=== PATIENT | male | born 1980 | race Caucasian/White ===

== ENCOUNTER 2023-03-22 08:46 | Emergency (ER) | payer OTHER, SELFPAY ==
[2023-03-22 08:52] VITALS: BP 169/102; RESP 20; TEMP 36.8; O2SAT 98; BMI 38.8
--- NOTE | 2023-03-22 09:11 | XR_ITS ---
WS: [id number] KUB, AP view, 03/22/2023 Clinical Data: constipation Comparison: None. Findings: No abnormal intraabdominal masses or calcifications are seen. There is no dilatated small bowel or ev idence of obstruction. There is fecal material in the ascending colon, transverse colon and descending colon. Impression: Moderate amount of fecal material in the colon.
[2023-03-22 10:01] VITALS: BP 174/119; PULSE 72; O2SAT 95
[2023-03-22 10:15] LABS: Basophils # 0.1 10^3/uL (0.0-0.1); Basophils % 0.6 %; Eosinophils # 0.2 10^3/uL (0.0-0.8); Eosinophils % 1.3 %; Hematocrit 46.8 % (37-53); Lymphocytes # 1.5 10^3/uL (0.8-4.8); Lymphocytes % 12.4 %; Mean Corpuscular HGB Conc 32.5 g/dL (30-55); Mean Corpuscular Hemoglobin 28.5 pg (27-33); Mean Corpuscular Volume 87.8 fl (82-101); Mean Platelet Volume 10.4 fL (7.4-10.4); Monocytes # 0.9 10^3/uL (0.2-0.9); Monocytes % 7.5 %; Neutrophils # 9.68 10^3/uL (1.8-7.7); Nucleated Red Blood Cells % 0 %; Platelet Count 229 10^3/cmm (157-399); Red Blood Count 5.33 10^6/uL (3.85-5.65); White Blood Count 12.41 10^3/uL (3.29-11.43)
[2023-03-22 10:34] LABS: Alanine Aminotransferase 20 U/L (0-41); Albumin Level 4.2 g/dL (3.5-5.2); Alkaline Phosphatase 85 U/L (40-130); Anion Gap 12.4 (5-19); Aspartate Amino Transferase 20 U/L (0-40); Blood Urea Nitrogen 14 mg/dL (6-20); Calcium 9.8 mg/dL (8.5-10.5); Carbon Dioxide 27 mmol/L (22-29); Chloride 104 mmol/L (98-107); Globulin 2.7 g/dL (1.3-4.6); Glomerular Filtration Rate 50.6 mL/min (90-130); Glucose 104 mg/dL (65-115); Osmolality Calculated 289 mOsm/kg (285-295); Potassium 4.4 mmol/L (3.5-5.1); Sodium 139 mmol/L (136-145); Total Bilirubin 1.1 mg/dL (0.15-1.2); Total Protein 6.9 g/dL (6.6-8.7)
[2023-03-22 11:15] LABS: Add Urine Microscopic? NO; Charge for UA Resulting for Rev
--- NOTE | 2023-03-22 11:16 | ED_ITS ---
HPI - Abdominal Pain General: Chief Complaint: Abdominal Pain Stated Complaint: right back pain, N, constipation Time Seen by Provider: 03/22/23 09:01 Source: patient Mode of arrival: ambulatory History of Present Illness: 43-year-old male comes in complaining of lower abdominal pain suprapubic extending to the right side. Began 1 week ago's been waxing and waning since worse after he eats. Last night it had worsened significantly. He has been nauseous and a couple episodes of vomiting no hematemesis or coffee-ground emes is. No diarrhea or acholic stools. He had constipation was unable to have a bowel movement took some laxatives and the pain got better and now he is unable to go again is having more symptoms. He has not had any dysuria urgency or hematuria he has had no hematochezia melena or hematemesis. MD elicited complaint: abdominal pain Pertinent past history: constipation Onset (ago): week(s) (1) Location: Other (Right mid lower abdomen) Quality: cramping Exacerbating factors: nothing Relieving factors: nothing Associated Symptoms: Reports constipation, GI cramping and vomiting; Denies anorexia, belching, bloating, change in bowel habits, change in stool character, chills, coffee ground emesis, diarrhea, dyspepsia, dysuria, excessive flatus, fever(s), heartburn, hematochezia, hematuria, hematemesis, fecal incontinence, loose stools, melena, nausea, poor appetite and syncope Review of Systems Const: Denies: fever(s) or chills Card: Denies: chest pain or syncope Resp: Denies: dyspnea GI: Reports: abdominal pain, vomiting, constipation and GI cramping; Denies: nausea, hematemesis, coffee ground emesis, heartburn, diarrhea, bloating, belching, excessive flatus, fecal incontinence, change in bowel rodriguez bits, change in stool character, hematochezia or melena : Denies: dysuria, urinary frequency, urinary urgency or hematuria Musc: Denies: neck pain or back pain Skin/Breast: Denies: rash Physical Exam Const: GENERAL APPEARANCE: cooperative and comfortable ORIENTATION/CONSCIOUSNESS: Yes awake, Yes oriented to person, Yes oriented to place and Yes oriented to time HENMT: COMMON NORMALS: normocephalic, atraumatic and hearing grossly normal bilaterally HEAD & SCALP: normocephalic and atraumatic Resp: COMMON NORMALS: normal respiratory effort, No retractions, No use of accessory muscles and clear to auscultation bilaterally AUSCULTATION: clear to auscultation bilaterally Cardio: COMMON NORMALS: regular rate, regular rhythm and No murmurs present (Cardio) RATE: regular rate RHYTHM: regular rhythm GI: COMMON NORMALS: Soft to palpation and No hepatosplenomegaly present AUSCULTATION: Yes normoactive bowel sounds PALPATION: Yes Soft to palpation, No Tenderness to palpation present (GI), No Guarding due to palpation present (GI) and Yes No hepatosplenomegaly present : COMMON NORMALS: Yes no CVA tenderness BLADDER/KIDNEY EXAM: Yes no CVA tenderness Back/Pelvis: COMMON NORMALS: no CVA tenderness Extremity: COMMON NORMALS: normal to inspection, capillary refill normal, no clubbing, cyanosis or edema, no calf tenderness and no pedal edema Neuro: SENSORIUM/ORIENTATION: Yes oriented to person, Yes oriented to place and Yes oriented to time Skin: COMMON NORMALS: no rashes or lesions noted GENERAL SKIN EXAM: no rashes or lesions noted Course Vital Signs: Vital signs: Vital Signs Temperature 98.2 F 03/22/23 08:52 Pulse Rate 72 03/22/23 10:01 Respiratory Rate 20 H 03/22/23 08:52 Blood Pressure 174/119 03/22/23 10:01 Pulse Oximetry 95 03/22/23 10:01 Oxygen Delivery Me thod Room Air 03/22/23 10:01 MDM - Abdominal Pain Medical Decision Making CT shows nonobstructing kidney stone. Patient does not have typical presentation for renal colic and has no blood in his urine despite that the this is a nonobstructive stone with reports of pain x1 week.. I contacted Dr. Mckeon confirms this radiographically appears to be an acute stone. He also has some constipation. We will start him on Rekha-Colace pain medications for the renal stone which will likely exacerbate his constipation. Tamsulosin alone to aid in passage of the stone referral to urology. Medical Records I reviewed the patient's medical records. Lab Data I reviewed the patient's lab results. 03/22/23 10:07 03/22/23 10:07 Labs/Radiology: Laboratory Results WBC 12.41 10^3/uL (3.29-11.43) H 03/22/23 10:07 RBC 5.33 10^6/uL (3.85-5.65) 03/22/23 10:07 Hgb 15.20 g/dL (11.27-16.99) 03/22/23 10:07 Hct 46.8 % (37-53) 03/22/23 10:07 MCV 87.8 fl (82-101) 03/22/23 10:07 MCH 28.5 pg (27-33) 03/22/23 10:07 MCHC 32.5 g/dL (30-55) 03/22/23 10:07 RDW 12.0 % (12.1-15.1) L 03/22/23 10:07 Plt Count 229 10^3/cmm (157-399) 03/22/23 10:07 MPV 10.4 fL (7.4-10.4) 03/22/23 10:07 Neut % (Auto) 78.0 % 03/22/23 10:07 Lymph % (Auto) 12.4 % 03/22/23 10:07 Steele % (Auto) 7.5 % 03/22/23 10:07 Eos % (Auto) 1.3 % 03/22/23 10:07 Baso % (Auto) 0.6 % 03/22/23 10:07 Neut # (Auto) 9.68 10^3/uL (1.8-7.7) H 03/22/23 10:07 Lymph # (Auto) 1.5 10^3/uL (0.8-4.8) 03/22/23 10:07 Steele # (Auto) 0.9 10^3/uL (0.2-0.9) 03/22/23 10:07 Eos # (Auto) 0.2 10^3/uL (0.0-0.8) 03/22/23 10:07 Baso # (Auto) 0.1 10^3/uL (0.0-0.1) 03/22/23 10:07 Nucleated RBC % (auto) 0 % 03/22/23 10:07 Nucleated RBCs # 0.0 /100WBC 03/22/23 10:07 Sodium 139 mmol/L (136-145) 03/22/23 10:07 Potassium 4.4 mmol/L (3.5-5.1) 03/22/23 10:07 Chloride 104 mmol/L (98-107) 03/22/23 10:07 Carbon Dioxide 27 mmol/L (22-29) 03/22/23 10:07 Anion Gap 12.4 (5-19) 03/22/23 10:07 BUN 14 mg/dL (6-20) 03/22/23 10:07 Creatinine 1.5 mg/dL (0.7-1.2) H 03/22/23 10:07 GFR Calculation 50.6 mL/min (90-130) L 03/22/23 10:07 Glucose 104 mg/dL (65-115) 03/22/23 10:07 Calculated Osmolality 289 mOsm/kg (285-295) 03/22/23 10:07 Calcium 9.8 mg/dL (8.5-10.5) 03/22/23 10:07 Total Bilirubin 1.1 mg/dL (0.15-1.2) 03/22/23 10:07 AST 20 U/L (0-40) 03/22/23 10:07 ALT 20 U/L (0-41) 03/22/23 10:07 Alkaline Phosphatase 85 U/L (40-130) 03/22/23 10:07 Total Protein 6.9 g/dL (6.6-8.7) 03/22/23 10:07 Albumin 4.2 g/dL (3.5-5.2) 03/22/23 10:07 Globulin 2.7 g/dL (1.3-4.6) 03/22/23 10:07 Urine Color Yellow (Yellow) 03/22/23 11:00 Urine Appearance Clear (CLEAR) 03/22/23 11:00 Urine pH 8 (5-7) H 03/22/23 11:00 Ur Specific Reserve 1.015 (1.005-1.030) 03/22/23 11:00 Urine Protein Neg (Negative) 03/22/23 11:00 Urine Glucose (UA) Norm (Normal) 03/22/23 11:00 Urine Ketones Negative (Negative) 03/22/23 11:00 Urine Blood Neg (Negative) 03/22/23 11:00 Urine Nitrate Negative (Negative) 03/22/23 11:00 Urine Bilirubin Neg (Negative) 03/22/23 11:00 Urine Urobilinogen Neg mg/dL (Negative) 03/22/23 11:00 Ur Leukocyte Esterase Negative (Negative) 03/22/23 11:00 All radiology interpretation(s) finalized by discharge Discharge Plan Discharge Patient Disposition: Home Clinical Impression: Calculus of kidney, Constipation Condition: Stable Prescriptions: New hydrocodone-acetaminophen 5-325 mg tablet 1 tab PO Q6H PRN (Reason: pain) Qty: 20 0RF tamsulosin 0.4 mg capsule 0.4 mg PO DAILY Qty: 10 0RF sennosides-docusate sodium 8.6-50 mg capsule 1 tab-cap PO BID Qty: 60 0RF No Action lisinopril 10 mg tablet 10 mg PO QAM Discharge Orders: Discharge ED (Routine); Ordered 03/22/23 Ordered By: Leonel Mayo Referrals: Dre Lamb NP [Primary Care Provider] - Discharge Diet: Usual diet Discharge Activity: Increase activity as tolerated Patient Instructions: Opioid Safety, Pain Management Coding Level of Care Code ED Credit Assessment Analyst for Manuela Titus
[2023-03-22 11:27] LABS: Bilirubin Urine Neg (Negative); Blood Urine Neg (Negative); Glucose Urine UA Norm (Normal); Ketones Urine Negative (Negative); Leukocyte Esterase Urine Negative (Negative); Nitrate Urine Negative (Negative); Protein Urine Neg (Negative); Specific Gravity, Urine 1.015 (1.005-1.030); Urine Appearance Clear (CLEAR); Urine Color Yellow (Yellow); Urobilinogen Urine Neg (Negative); pH Urine 8 (5-7)
--- NOTE | 2023-03-22 11:36 | CT_ITS ---
WS: [id number] CT ABDOMEN AND PELVIS NONCONTRAST HISTORY: Abdominal pain TECHNIQUE: Imaging performed through the abdomen and pelvis. Coronal and sagittal reformats are submi tted. All CT scans at [facility] use at least one of these dose optimization techniques: auto mated exposure control; mA and/or kV adjustment per patient size (includes targeted exams where dose is matched to clinical indication); or iterative reconstruction. DLP: 1265.43 mGy.cm COMPARISON: None available. Lower thorax: Lung bases are clear. Visualized heart is normal. No hiatal hernia. Liver: Normal size liver. No mass or bile duct dilatation. Gallbladder: Normal gallbladder. No pericholecystic fluid or cholelithiasis. No gallbladder wall thic kening. Pancreas: Normal size and attenuation. Normal pancreatic duct. No pancreatitis or mass. Spleen: Normal. Adrenal glands: Normal. No mass. Right kidney: Mild perinephric stranding and renal enlargement. There is mild hydroureteronephrosis. Hydronephrosis secondary to a 4.5 mm ureteral calcification at the level of L4-5 disc. Mild periurete ral stranding. There are additional nonobstructing calcifications in the RIGHT kidney. Left kidney: Normal size kidney. Nonobstructing calcifications in the renal pelvis. Aorta: Normal abdominal aorta, no aneurysm or atherosclerosis. No free fluid, intraperitoneal air or significant lymphadenopathy. GI tract: Normal noncontrast imaging of the stomach, small bowel and colon. No obstruction or wall th ickening. Normal appendix. Abdominal wall: Abdominal wall hernia contains fat only. Pelvis: No free fluid. Normal urinary bladder. Osseous structures: Unremarkable. IMPRESSION: 1. Mild RIGHT hydroureteronephrosis secondary to a 4.5 mm calcification in the mid ureter. 2. Additional nonobstructing bilateral renal calcifications.
--- NOTE | 2023-04-02 09:50 | DCPLANNER ---
Patient followed up with [facility] with Dr Burns and ANTONI Mcghee. Per Maribeth ()
== END 2023-03-22 13:15 | disposition home or self-care (01) ==
PROVIDERS: Emergency Provider Family Medicine; PCP Nurse Practitioner Family
DX: N20.0 Calculus of kidney (principal); K59.00 Constipation, unspecified
CPT/HCPCS: 36415; 74018; 74176; 80053; 81003; 85025; 99284

== ENCOUNTER → 2023-12-05 15:41 | Outpatient (BNVA) | payer OTHER, SELFPAY | PROVIDERS: PCP Nurse Practitioner Family; Visit Provider Internal Medicine Cardiovascular Disease | DX: I21.19 ST elevation (STEMI) myocardial infarction involving other coronary artery of inferior wall (principal); R07.9 Chest pain, unspecified | CPT/HCPCS: 93005 ==

== ENCOUNTER 2024-01-07 11:56 | Outpatient (CLI) | payer OTHER, SELFPAY ==
--- NOTE | 2024-01-07 12:00 | USCV_ITS ---
Juan Saha Age: 43 Gender: M : 1980 Exam Date: 01/07/2024 12:07 Ordering Phys: Zonia Crowley MD ([email or web address]) Technologist: CT Exam Location: [facility] [place] Indication: htn BP: 126 / 72 HR: 77 Rhythm: Sinus Technical Quality: Adequate MEASUREMENTS (Male / Female) Normal Values 2D ECHO LVOT Diameter 2.0 cm LV Ejection Fraction MOD 4C 64.5 % LV Ejection Fraction MOD 2C 68.3 % LV Ejection Fraction 2C AL 70.5 % LA Diameter 5.0 cm RA Systolic Volume 4C AL 88.4 ml RA Systolic Volume 4C MOD 88.7 ml LA Sys Volume AL 94.4 cm cubed LA Sys Volume Index AL 35.8 cm cubed/m squared Aorta at Sinotubular Diameter 2.9 cm M-MODE LA Ao Ratio MM 1.5 AV Cusp Separation MM 2.3 cm DOPPLER AV Peak Velocity 139.0 cm/s LVOT Peak Velocity 125.0 cm/s AV Area Cont Eq vti 3.7 cm squared AV Area Cont Eq pk 3.0 cm squared MV Peak Velocity 96.0 cm/s MV Area PHT 3.6 cm squared Mitral E to A Ratio 1.1 TV Peak Velocity 190.0 cm/s TR Peak Velocity 193.0 cm/s TR Peak Gradient 14.9 mmHg TV Peak E Velocity 69.0 cm/s Right Atrial Pressure 3.0 mmHg Pulmonary Artery Systolic Pressu 17.9 mmHg PV Peak Velocity 123.5 cm/s FINDINGS Left Ventricle Normal left ventricular size and systolic function, EF68%. No gross wall motion abnormalities. Mild Cardizem drip left- ventricular hypertrophy Right Ventricle The right ventricle is normal in size and function. Right Atrium The right atrium is normal in size. Left Atrium The left atrium is normal in size. Mitral Valve No significant abnormalities Aortic Valve No significant valvular abnormalities Tricuspid Valve Structurally normal tricuspid valve. Pulmonic Valve No gross abnormalities noted Pericardium Normal pericardium without effusion. Aorta Normal ascending aorta dimension. IVC Inferior vena cava not visualized. CONCLUSIONS Normal left ventricular size and systolic function, EF68%. No gross wall motion abnormalities. Mild Cardizem drip left- ventricular hypertrophy. No gross valvular abnormalities. Normal cardiac chamber sizes. There is no pericardial effusion. There are no intracardiac masses. No similar previous studies are available for comparison Dr Zonia Crowley MD FAC (Electronically Signed) Final Date: 15 January 2024 08:35 S
== END 2024-01-07 11:57 | disposition home or self-care (01) ==
LOC: RAD 11:57
PROVIDERS: PCP Nurse Practitioner Family; Visit Provider Internal Medicine Cardiovascular Disease
DX: R06.09 Other forms of dyspnea (principal)
CPT/HCPCS: 93306